=== PATIENT | female | born 1985 | race Caucasian/White ===

== ENCOUNTER 2020-12-16 23:50 | Inpatient (IN) ==
[2020-12-17] MEDS ORDERED: PIPERACILLIN/TAZOBACTAM 3,375 MG in SODIUM CHLORIDE 0.9% 100 ML IV STA (00:40)
[2020-12-17] MEDS ORDERED: ONDANSETRON 4 MG/2 ML VIAL IV STA (00:40)
[2020-12-17] MEDS ORDERED: KETOROLAC 30 MG/1 ML VIAL IV STA (00:41)
[2020-12-17] MEDS ORDERED: PANTOPRAZOLE 40 MG VIAL IV STA (00:41)
[2020-12-17] MEDS ORDERED: GLUCAGON 1 MG VIAL IM PRN (01:23)
[2020-12-17] MEDS ORDERED: MAGNESIUM SULF RIDER 2 GM/50 ML PREMIX IV PRN (01:23)
[2020-12-17] MEDS ORDERED: MAGNESIUM SULF RIDER 4 GM/100 ML PREMIX IV PRN (01:23)
[2020-12-17] MEDS ORDERED: DEXTROSE 50% 25 GM/50 ML VIAL IV PRN (01:23)
[2020-12-17 01:30] LABS: Basophils % 0.4 % (0.0-0.8); Eosinophils # 0.1 10*3/uL (0.0-0.87); Eosinophils % 0.7 % (0.00-10.9); Hematocrit 45.8 VOL% (35.7-47.0); Hemoglobin 15.1 GM/DL (12.0-16.0); Immature Granulocytes % 0.4 %; Immature Granulocytes Absolute 0.03 #; Lymphocytes # 1.6 10*3/uL (1.4-4.0); Lymphocytes % 18.5 % (21.3-54.2); Mean Corpuscular Volume 90.9 FL (87-102); Mean Platelet Volume 9.4 FL (9.6-12.0); Platelet Count 418 T/CUMM (130-400); Red Blood Count 5.04 MC/CUMM (3.8-5.5); Red Cell Distribution Width 13.6 % (9.3-17.3); White Blood Count 8.5 T/CUMM (4-12)
[2020-12-17] MEDS ORDERED: SIMETHICONE CHEW 125 MG TABLET PO PRN (01:32)
[2020-12-17] MEDS ORDERED: ONDANSETRON 4 MG/2 ML VIAL IV PRN (01:32)
[2020-12-17] MEDS ORDERED: HYDROmorphone 2 MG/1 ML VIAL IV PRN (01:32)
[2020-12-17 01:46] LABS: Albumin 4.3 G/DL (3.4-5.0); Bilirubin,Total 2.4 MG/DL (0.20-1.00); Calcium 9.3 MG/DL (8.5-10.1); Osmolality,Calculated 271.7 MOS/KG (273-304); Total Protein 8.4 G/DL (6.4-8.2)
[2020-12-17 01:47] LABS: PT Patient Result 11.7 SECS (10.5-12.0)
[2020-12-17] MEDS ORDERED: SODIUM CHLORIDE 0.9% 1,000 ML IV SCH (02:00)
[2020-12-17 02:46] LABS: Bilirubin,Urine Negative (Negative); Blood, Urine Moderate mg/dL (Negative); Glucose,Urine (UA) Negative (Negative); Ketones,Urine 80 mg/dL (Negative); Mucus,Urine Occasional /LPF (Occasional); Nitrite,Urine Negative (Negative); Protein,Urine Negative; RBC,Urine 14 /HPF (0-4); Squamous Epithelial Cell,Urine Occasional /HPF (0-10); Urine Appearance CLEAR (Clear); Urine Color Amber (Yellow); Urine Specific Gravity 1.056 (1.001-1.035)
[2020-12-17] MEDS ORDERED: POTASSIUM CHLORIDE 20 MEQ TABLET PO PRN (03:16)
[2020-12-17] MEDS: POTASSIUM CHLORIDE RIDER 10 MEQ/100 ML PREMIX IV PRN ×5 (05:31→16:01)
[2020-12-17] MEDS: DOCUSATE SODIUM 100 MG CAPSULE PO SCH ×2 (10:45→22:08)
[2020-12-17] MEDS: PIPERACILLIN/TAZOBACTAM 3,375 MG in SODIUM CHLORIDE 0.9% 100 ML IV SCH (17:12)
[2020-12-18] MEDS: PIPERACILLIN/TAZOBACTAM 3,375 MG in SODIUM CHLORIDE 0.9% 100 ML IV SCH ×3 (02:48→17:28)
[2020-12-18 06:26] LABS: Basophils % 0.6 % (0.0-0.8); Eosinophils # 0.2 10*3/uL (0.0-0.87); Eosinophils % 3.5 % (0.00-10.9); Hematocrit 40.9 VOL% (35.7-47.0); Hemoglobin 13.2 GM/DL (12.0-16.0); Immature Granulocytes % 0.3 %; Immature Granulocytes Absolute 0.02 #; Lymphocytes % 30.4 % (21.3-54.2); Mean Corpuscular HGB Conc 32.3 GM/DL (32-36); Mean Corpuscular Volume 93.4 FL (87-102); Mean Platelet Volume 9.8 FL (9.6-12.0); Monocytes % 10.7 % (1.7-12.7); Neutrophils % 54.5 % (38.7-73.9); Platelet Count 326 T/CUMM (130-400); Red Blood Count 4.38 MC/CUMM (3.8-5.5); Red Cell Distribution Width 13.5 % (9.3-17.3); White Blood Count 6.5 T/CUMM (4-12)
[2020-12-18 07:12] LABS: Albumin 3.1 G/DL (3.4-5.0); Bilirubin,Total 1.6 MG/DL (0.20-1.00); Calcium 8.8 MG/DL (8.5-10.1); Osmolality,Calculated 277.3 MOS/KG (273-304); Potassium 3.5 MMOL/L (3.5-5.1); Total Protein 6.5 G/DL (6.4-8.2)
[2020-12-18] MEDS: DOCUSATE SODIUM 100 MG CAPSULE PO SCH ×2 (09:43→22:40)
[2020-12-19] MEDS: PIPERACILLIN/TAZOBACTAM 3,375 MG in SODIUM CHLORIDE 0.9% 100 ML IV SCH ×3 (02:10→18:17)
[2020-12-19 04:21] LABS: Basophils % 0.4 % (0.0-0.8); Eosinophils # 0.2 10*3/uL (0.0-0.87); Eosinophils % 2.8 % (0.00-10.9); Hematocrit 41.3 VOL% (35.7-47.0); Hemoglobin 13.6 GM/DL (12.0-16.0); Immature Granulocytes % 0.3 %; Immature Granulocytes Absolute 0.02 #; Lymphocytes # 2.1 10*3/uL (1.4-4.0); Lymphocytes % 30.9 % (21.3-54.2); Mean Corpuscular HGB Conc 32.9 GM/DL (32-36); Mean Corpuscular Volume 91.6 FL (87-102); Mean Platelet Volume 9.4 FL (9.6-12.0); Monocytes % 9.5 % (1.7-12.7); Neutrophils % 56.1 % (38.7-73.9); Platelet Count 358 T/CUMM (130-400); Red Blood Count 4.51 MC/CUMM (3.8-5.5); White Blood Count 6.9 T/CUMM (4-12)
[2020-12-19 04:30] LABS: Calcium 8.7 MG/DL (8.5-10.1); Osmolality,Calculated 275.4 MOS/KG (273-304); Potassium 3.4 MMOL/L (3.5-5.1)
[2020-12-19 04:47] LABS: INR 1.1
[2020-12-19] MEDS ORDERED: FAMOTIDINE 20 MG/2 ML VIAL IV ONE (06:58)
[2020-12-19] MEDS ORDERED: INDOMETHACIN SUPP 50 MG SUPP RECTAL ONE (08:00)
[2020-12-19] MEDS: DOCUSATE SODIUM 100 MG CAPSULE PO SCH ×2 (08:31→20:35)
[2020-12-19] MEDS: POTASSIUM CHLORIDE RIDER 10 MEQ/100 ML PREMIX IV PRN (09:22)
[2020-12-19] MEDS ORDERED: fentaNYL 100 MCG/2 ML VIAL ONE (10:13)
[2020-12-19] MEDS ORDERED: MIDAZOLAM 2 MG/2 ML VIAL ONE (10:14)
[2020-12-19] MEDS: LACTATED RINGERS 1,000 ML IV SCH (10:19)
[2020-12-19] MEDS ORDERED: ePHEDrine 50 MG/ML VIAL ONE (11:43)
[2020-12-19] MEDS ORDERED: ROCURONIUM 50 MG/5 ML VIAL IV ONE (12:24)
[2020-12-19] MEDS ORDERED: DEXAMETHASONE 4 MG/1 ML VIAL ONE (12:24)
[2020-12-19] MEDS ORDERED: propofoL 200 MG/20 ML VIAL IV ONE (12:24)
[2020-12-19] MEDS ORDERED: SEVOFLURANE 1 UNIT/15 MINUTE INH ONE (12:24)
[2020-12-19] MEDS ORDERED: ONDANSETRON 4 MG/2 ML VIAL ONE (12:24)
[2020-12-19] MEDS ORDERED: SUCCINYLCHOLINE 200 MG/10 ML VIAL ONE (12:24)
[2020-12-19] MEDS ORDERED: LIDOCAINE 2% 5 ML VIAL ONE (12:24)
[2020-12-19] MEDS ORDERED: INDOCYANINE GREEN 25 MG VIAL IV ONE (13:24)
[2020-12-19] MEDS: POTASSIUM BICARB EFFERVESCENT 20 MEQ TAB.EFF PO PRN ×2 (18:18→20:35)
[2020-12-20] MEDS: PIPERACILLIN/TAZOBACTAM 3,375 MG in SODIUM CHLORIDE 0.9% 100 ML IV SCH ×2 (01:48→10:30)
[2020-12-20] MEDS ORDERED: fentaNYL 100 MCG/2 ML VIAL ONE (06:18)
[2020-12-20] MEDS ORDERED: ONDANSETRON 4 MG/2 ML VIAL ONE (06:18)
[2020-12-20] MEDS ORDERED: LIDOCAINE 2% 5 ML VIAL ONE (06:18)
[2020-12-20] MEDS ORDERED: SUCCINYLCHOLINE 200 MG/10 ML VIAL ONE (06:18)
[2020-12-20] MEDS ORDERED: SEVOFLURANE 1 UNIT/15 MINUTE INH ONE ×4 (06:18→06:19)
[2020-12-20] MEDS ORDERED: ROCURONIUM 50 MG/5 ML VIAL IV ONE (06:18)
[2020-12-20] MEDS ORDERED: propofoL 200 MG/20 ML VIAL IV ONE (06:18)
[2020-12-20] MEDS ORDERED: DEXAMETHASONE 4 MG/1 ML VIAL ONE ×2 (06:18→08:20)
[2020-12-20] MEDS ORDERED: MIDAZOLAM 2 MG/2 ML VIAL ONE (06:19)
[2020-12-20 06:23] LABS: Basophils % 0.4 % (0.0-0.8); Eosinophils # 0.1 10*3/uL (0.0-0.87); Eosinophils % 0.6 % (0.00-10.9); Hematocrit 44.1 VOL% (35.7-47.0); Hemoglobin 14.4 GM/DL (12.0-16.0); Immature Granulocytes % 0.3 %; Immature Granulocytes Absolute 0.02 #; Lymphocytes # 2.3 10*3/uL (1.4-4.0); Lymphocytes % 30.2 % (21.3-54.2); Mean Corpuscular HGB Conc 32.7 GM/DL (32-36); Mean Corpuscular Volume 91.7 FL (87-102); Mean Platelet Volume 9.5 FL (9.6-12.0); Monocytes % 8.9 % (1.7-12.7); Neutrophils % 59.6 % (38.7-73.9); Platelet Count 399 T/CUMM (130-400); Red Blood Count 4.81 MC/CUMM (3.8-5.5); White Blood Count 7.7 T/CUMM (4-12)
[2020-12-20] MEDS ORDERED: TISSUE ADHESIVE 1 EACH APPLICATOR TOP ONE (06:23)
[2020-12-20] MEDS ORDERED: BUPIVACAINE MPF 0.25% 30 ML VIAL ONE (06:23)
[2020-12-20] MEDS ORDERED: LIDOCAINE 1% 50 ML VIAL ONE (06:23)
[2020-12-20] MEDS: LACTATED RINGERS 1,000 ML IV SCH (06:44)
[2020-12-20 06:50] LABS: Albumin 3.6 G/DL (3.4-5.0); Calcium 9.2 MG/DL (8.5-10.1); Osmolality,Calculated 276.4 MOS/KG (273-304); Potassium 3.7 MMOL/L (3.5-5.1); Total Protein 7.9 G/DL (6.4-8.2)
[2020-12-20] MEDS ORDERED: INDOCYANINE GREEN 25 MG VIAL IV ONE (07:00)
[2020-12-20] MEDS ORDERED: SUGAMMADEX 200 MG/2 ML VIAL IV ONE (07:53)
[2020-12-20] MEDS ORDERED: ONDANSETRON 4 MG/2 ML VIAL IV PRN (08:22)
[2020-12-20] MEDS: HYDROmorphone 2 MG/1 ML VIAL IV PRN ×2 (08:25→08:30)
[2020-12-20] MEDS ORDERED: MEPERIDINE 25 MG/1 ML VIAL IV PRN (08:38)
[2020-12-20] MEDS ORDERED: MEPERIDINE 25 MG/1 ML VIAL ONE (08:40)
[2020-12-20 12:59] VITALS: BP 116/80
[2020-12-20] MEDS: DOCUSATE SODIUM 100 MG CAPSULE PO SCH (13:24)
== END 2020-12-20 14:19 | disposition home or self-care (01) | DRG 417 ==
LOC: N.ED 23:50 → SUATTDRO 12-17 01:23 → N.EDINP 12-17 01:23 → N.2W 12-17 03:08
PROVIDERS: ADMIT Internal Medicine; ATTEND Internal Medicine
PROC: ERCPWSP (ICD-10-PCS; 2020-12-19 14:05)